=== PATIENT | female | born 1995 | race American Indian/Alaskan Native ===

== ENCOUNTER 2021-01-08 00:29 | Emergency (ER) | payer SELFPAY ==
[2021-01-08 02:02] LABS: Bilirubin,Urine NEG (Negative); Blood,Urine NEG (Negative); Color,Urine Straw (Yellow); Protein,Urine <15 mg/dL mg/dL (Negative); Urobilinogen,Urine < 2.0 mg/dL (<2.0); WBC,Urine < 1.0 /HPF (0.0-6.0)
[2021-01-08 02:17] LABS: HCG Qualitative,Urine Negative (Negative)
--- NOTE | 2021-01-08 02:37 | Emergency Department Report ---
ED General Adult HPI - General Chief complaint: Urogenital-Female Stated complaint: POSS YEAST INFECTION Time Seen by Provider: 01/08/21 02:26 Source: patient Mode of arrival: Ambulatory Limitations: No Limitations - History of Present Illness Initial comments: 25-year-old female patient with family history of diabetes presents to the emergency department with complaints of vaginal irritation and discharge for 4 days. No new sexual partners. Patient has previously engaged in unprotected sexual intercourse. Last menstrual cycle was almost 30 days ago. No current steroid or antibiotic use. Denies fever, chills, abdominal pain, pelvic pain, vaginal bleeding. Denies all other complaints at this time. - Related Data Previous Rx's Medication Instructions Recorded Last Taken Type Doxycycline Hyclate 100 mg PO BID 7 Days tablet. 01/08/21 Unknown Rx metFORMIN [Glucophage] 500 mg PO BID #20 tablet 01/08/21 Unknown Rx metroNIDAZOLE [Flagyl] 500 mg PO Q12HR 7 Days tab 01/08/21 Unknown Rx Allergies Allergy/AdvReac Type Severity Reaction Status Date / Time miconazole Allergy Swelling Verified 01/08/21 01:43 [From Monistat 1 Combo Pack] ED Review of Systems ROS: Stated complaint: POSS YEAST INFECTION Other details as noted in HPI Other: GENERAL: Negative for fever. CARDIOVASCULAR: Negative for chest pain. PULMONARY: Negative for shortness of breath. GASTROINTESTINAL: Negative for abdominal pain. GENITOURINARY: Positive for vaginal irritation/discharge. MUSCULOSKELETAL: Negative for back pain. NEUROLOGICAL: Negative for headache. INTEGUMENTARY: Negative for rash. ED Past Medical Hx - Past Medical History Previous Medical History?: Yes Additional medical history: Left ovarian cyst - Surgical History Past Surgical History?: Yes Additional Surgical History: c-scetion X 2 - Social History Smoking Status: Never Smoker Substance Use Type: None - Medications Home Medications: Home Medications Medication Instructions Recorded Confirmed Last Taken Type Doxycycline Hyclate 100 mg PO BID 7 Days tablet. 01/08/21 Unknown Rx metFORMIN [Glucophage] 500 mg PO BID #20 tablet 01/08/21 Unknown Rx metroNIDAZOLE [Flagyl] 500 mg PO Q12HR 7 Days tab 01/08/21 Unknown Rx ED Physical Exam - General Limitations: No Limitations ED Course Vital Signs 01/08/21 01/08/21 01/08/21 01:43 04:04 07:00 Temperature 98.3 F Pulse Rate 109 H 90 Respiratory 18 20 18 Rate Blood Pressure 128/77 Blood Pressure 127/68 [Left] O2 Sat by Pulse 99 Oximetry ED Medical Decision Making - Lab Data Result diagrams: 01/08/21 04:30 01/08/21 04:30 - Medical Decision Making Differential diagnosis including but not limited to: bacterial vaginosis, vulvovaginal candidiasis, sexually transmitted infection, pelvic inflammatory disease Patient presents to the emergency department with complaints of vaginal discharge. Urinalysis obtained in triage shows ketonuria as well as significant glucosuria. Patient has no known history of diabetes however fingerstick glucose obtained in light of urinalysis findings shows serum glucose of 404. Venous pH within normal limits. Renal function within normal limits. Remainder of laboratory evaluation is unremarkable. Wet prep shows evidence of clue cells and yeast. Treated with Diflucan and Flagyl in the emergency department. STD exposure prophyaxis also administered. On reevaluation, patient is stable and symptoms have improved. Tachycardia resolved. Repeat serum glucose 267. No clinical indication for further yolanda gnostic work-up on an emergent basis at this time. Patient will be discharged home with Flagyl and Doxycycline for treatment of her presenting complaint. Shared decision making was implemented regarding her new onset diabetes; patient has expressed a strong preference for treatment on an outpatient basis in the absence of hyperglycemic emergency. She will be discharged home with prescription for Metformin and referrals to multiple primary care providers for close outpatient follow-up. Emphasized the importance of scheduling an appointment this week for further evaluation and definitive medical management. Lifestyle modifications extensively discussed. Strict return precautions provided. Repeat exam is unremarkable and benign. History, exam, diagnostic testing, and current condition do not suggest worrisome pathology to warrant further testing, continued ED treatment, admission, or surgical evaluation at this point. Given the low probability of a significant medical illness, it would be more likely to result in harm than benefit to perform further testing at this stage. Discussed findings, presumptive diagnosis, need for follow-up and specific signs/symptoms that should prompt immediate return to the emergency department. Instructions were explained in detail to the patient in addition to giving written discharge information. Patient expressed understanding and was given the opportunity to ask questions, all of which were satisfactorily answered prior to discharge home. Critical care attestation.: If time is entered above; I have spent that time in minutes in the direct care of this critically ill patient, excluding procedure time. ED Disposition Clinical Impression: Diabetes mellitus, new onset, Bacterial vaginosis, Vulvovaginal candidiasis Disposition: DC-01 TO HOME OR SELFCARE Is pt being admited?: No Does the pt Need Aspirin: No Condition: Stable Instructions: Vaginal Yeast Infection, Adult, Living With Diabetes, Bacterial Vaginosis, [id number], Preventing Diabetes Mellitus Complications, Diabetes Mellitus and Nutrition, Adult, Bacterial Vaginosis (ED), Diabetes Mellitus Type 2 in Adults (ED) Additional Instructions: Take Doxycycline with food as directed. Avoid prolonged sun exposure while taking this medication. Take Flagyl with food as directed. Avoid alcohol while taking this medication. Take Metformin as directed. Stay well-hydrated. Exercise daily. Eliminate all excess sugar from your diet. Limit your daily carbohydrate intake. Increase your dietary intake of vegetables and high-protein foods. You must follow-up with primary care provider this week. Call tomorrow to schedule an appointment. See referral information below. Return to the emergency department immediately for new or worsening symptoms. Specifically, return to the emergency department immediately for fever, vomiting, abdominal pain, mental status changes, or any other concerns. Prescriptions: Doxycycline Hyclate 100 mg PO BID 7 Days tablet. metroNIDAZOLE [Flagyl] 500 mg PO Q12HR 7 Days tab metFORMIN [Glucophage] 500 mg PO BID #20 tablet Referrals: RADHA RANDOLPH MD [Primary Care Provider] - 3-5 Days PEDRO RAMSEY MD [Staff Physician] - 3-5 Days [facility] [place] [Outside] - 3-5 Days [facility] [Outside] - 3-5 Days [facility] [place] [place] [Outside] - 3-5 Days [facility] [Provider Group] - 3-5 Days Forms: STI Treatment and Prevention Time of Disposition: 06:42
[2021-01-08] MEDS ORDERED: INSULIN REGULAR, HUMAN 100 UNITS/1 ML SUB-Q ONE (03:50)
[2021-01-08] MEDS ORDERED: SODIUM CHLORIDE 0.9% 1000 ML 1,000 ML IV ONE (03:50)
[2021-01-08 04:48] LABS: Basophils # (Auto) 0.1 K/mm3 (0.0-0.1); Basophils % (Auto) 1.4 % (0.0-1.8); Eosinophils # (Auto) 0.1 K/mm3 (0.0-0.4); Eosinophils % (Auto) 1.4 % (0.0-4.3); Hematocrit 37.6 % (30.3-42.9); Hemoglobin 12.7 gm/dl (10.1-14.3); Lymphocytes # (Auto) 3.7 K/mm3 (1.2-5.4); Lymphocytes % (Auto) 36.5 % (13.4-35.0); Mean Corpuscular HGB Conc 34 % (30-34); Mean Corpuscular Volume 81 fl (79-97); Monocytes # (Auto) 0.6 K/mm3 (0.0-0.8); Monocytes % (Auto) 6.2 % (0.0-7.3); Platelet Count 304 K/mm3 (140-440); Red Blood Count 4.63 M/mm3 (3.65-5.03); Red Cell Distribution Width 14.1 % (13.2-15.2)
[2021-01-08 05:10] LABS: Alanine Aminotransferase 13 units/L (7-56); Albumin 4.5 g/dL (3.9-5); Blood Urea Nitrogen 12 mg/dL (7-17); Calcium 9.7 mg/dL (8.4-10.2); Hemolysis Index 13
[2021-01-08 05:11] LABS: BUN/Creatinine Ratio 20
[2021-01-08] MEDS ORDERED: DOXYCYCLINE 100 MG CAP PO ONE (05:12)
[2021-01-08] MEDS ORDERED: LIDOCAINE-MPF (1%) 10 MG/1 ML VIAL 5 ML INFILTRATI ONE (05:12)
[2021-01-08] MEDS ORDERED: INSULIN REGULAR, HUMAN 100 UNITS/1 ML IV ONE (05:12)
[2021-01-08] MEDS ORDERED: FLUCONAZOLE 200 MG TAB PO ONE (05:12)
[2021-01-08] MEDS ORDERED: metroNIDAZOLE 500 MG TAB PO ONE (05:12)
[2021-01-08 07:00] VITALS: BP 127/68
== END 2021-01-08 07:00 | disposition home or self-care (01) ==
LOC: ED 00:29
DX: N76.0 Acute vaginitis (principal); B96.89 Other specified bacterial agents as the cause of diseases classified elsewhere; B37.3 Candidiasis of vulva and vagina; E11.9 Type 2 diabetes mellitus without complications; Z98.890 Other specified postprocedural states; Z88.8 Allergy status to other drugs, medicaments and biological substances; Z79.899 Other long term (current) drug therapy
CPT/HCPCS: 36415; 80053; 81001; 81025; 82805; 82962; 83735; 85025; 87210; 87591; 96361; 96365; 96375; 99284; J0696; J7030; J1815

== ENCOUNTER 2021-04-10 16:14 | Emergency (ER) | payer SELFPAY ==
--- NOTE | 2021-04-10 18:39 | Emergency Department Report ---
ED Female HPI - General Chief complaint: Urogenital-Female Stated complaint: YEAST INFECTION Time Seen by Provider: 04/10/21 18:19 Source: patient Mode of arrival: Ambulatory Limitations: No Limitations - History of Present Illness Initial comments: Patient is a 25-year-old female presents emergency room with complaints of a "yeast infection." Patient states that for the last 4 days she has had some vaginal itching, small amount of vaginal discharge. She denies any dysuria, abdominal pain, fever, nausea, vomiting, diarrhea, urinary symptoms. She has a past medical history of diabetes and is supposed to be taking Metformin, she states that she is out of her medication. She denies any possibility of . She denies any concerns for STDs. - Related Data Previous Rx's Medication Instructions Recorded Last Taken Type Doxycycline Hyclate 100 mg PO BID 7 Days tablet. 01/08/21 Unknown Rx metroNIDAZOLE [Flagyl] 500 mg PO Q12HR 7 Days tab 01/08/21 Unknown Rx Fluconazole [Diflucan TAB] 100 mg PO QDAY 3 Days #3 tablet 04/10/21 Unknown Rx metFORMIN [Glucophage] 500 mg PO BID #60 tablet 04/10/21 Unknown Rx Allergies Allergy/AdvReac Type Severity Reaction Status Date / Time miconazole Allergy Swelling Verified 01/08/21 01:43 [From Monistat 1 Combo Pack] ED Review of Systems ROS: Stated complaint: YEAST INFECTION Other details as noted in HPI Comment: All other systems reviewed and negative ED Past Medical Hx - Past Medical History Previous Medical History?: Yes Hx Diabetes: Yes Additional medical history: Left ovarian cyst - Surgical History Past Surgical History?: Yes Additional Surgical History: c-scetion X 2 - Social History Smoking Status: Never Smoker Substance Use Type: None - Medications Home Medications: Home Medications Medication Instructions Recorded Confirmed Last Taken Type Doxycycline Hyclate 100 mg PO BID 7 Days tablet. 01/08/21 Unknown Rx metroNIDAZOLE [Flagyl] 500 mg PO Q12HR 7 Days tab 01/08/21 Unknown Rx Fluconazole [Diflucan TAB] 100 mg PO QDAY 3 Days #3 tablet 04/10/21 Unknown Rx metFORMIN [Glucophage] 500 mg PO BID #60 tablet 04/10/21 Unknown Rx ED Physical Exam - General Limitations: No Limitations General appearance: alert, in no apparent distress - Head Head exam: Present: atraumatic, normocephalic - Eye Eye exam: Present: normal appearance - ENT ENT exam: Present: mucous membranes moist - Respiratory Respiratory exam: Absent: respiratory distress, accessory muscle use - GI/Abdominal GI/Abdominal exam: Present: soft. Absent: distended, tenderness, guarding, rebound, rigid - Neurological Exam Neurological exam: Present: alert, oriented X3 - Psychiatric Psychiatric exam: Present: normal affect, normal mood - Skin Skin exam: Present: warm, dry ED Course Vital Signs 04/10/21 04/10/21 17:03 18:45 Temperature 98.0 F 98.4 F Pulse Rate 94 H 87 Respiratory 18 18 Rate Blood Pressure 123/62 121/86 O2 Sat by Pulse 98 100 Oximetry ED Medical Decision Making - Medical Decision Making Patient is a 25-year-old female presents emergency room with complaints of a "yeast infection." Patient states that for the last 4 days she has had some vaginal itching, small amount of vaginal discharge. She denies any dysuria, abdominal pain, fever, nausea, vomiting, diarrhea, urinary symptoms. She has a past medical history of diabetes and is supposed to be taking Metformin, she states that she is out of her medication. She denies any possibility of . She denies any concerns for STDs. Patient previously had yeast present on her wet prep during her last emergency room visit. She is not having any urinary symptoms, pelvic pain, denies concerns for STDs. Patient given prescription for medication. Discussed the importance of outpatient follow-up. Advised patient Please take medication as prescribed. Follow-up with a primary care doctor. Follow-up with [facility]. Return to emergency room for any new or worsening symptoms. Critical care attestation.: If time is entered above; I have spent that time in minutes in the direct care of this critically ill patient, excluding procedure time. ED Disposition Clinical Impression: Yeast vaginitis Disposition: HOME / SELF CARE / HOMELESS Is pt being admited?: No Does the pt Need Aspirin: No Condition: Stable Instructions: Vaginal Yeast Infection, Adult Additional Instructions: Please take medication as prescribed. Follow-up with a primary care doctor. Follow-up with [facility]. Return to emergency room for any new or worsening symptoms. Prescriptions: Fluconazole [Diflucan TAB] 100 mg PO QDAY 3 Days #3 tablet metFORMIN [Glucophage] 500 mg PO BID #60 tablet Referrals: [facility] [Provider Group] - 3-5 Days PEDRO RAMSEY MD [Staff Physician] - 3-5 Days Forms: Work/School Release Form(ED) Time of Disposition: 18:38 Print Language: YI
[2021-04-10 18:47] VITALS: BP 121/86
== END 2021-04-10 19:00 | disposition home or self-care (01) ==
LOC: ED 16:14
DX: N76.0 Acute vaginitis (principal); B99.8 Other infectious disease; E11.9 Type 2 diabetes mellitus without complications; Z98.890 Other specified postprocedural states; Z88.8 Allergy status to other drugs, medicaments and biological substances
CPT/HCPCS: 99282